=== PATIENT | male | born 1965 | race Caucasian/White ===

== ENCOUNTER 2021-06-12 10:58 | Emergency (ER) | payer MEDICAID, OTHER ==
[2021-06-12 11:17] VITALS: BP 166/86; PULSE 76
[2021-06-12] MEDS ORDERED: diphenhydrAMINE 50 MG/ML SDV IVPUSH ONE (11:30)
[2021-06-12] MEDS ORDERED: methylPREDNISolone Sodium Succinate 125 MG/2 ML SDV IVPUSH ONE (11:30)
[2021-06-12] MEDS ORDERED: Famotidine 20 MG/2 ML SDV IVPUSH ONE (11:30)
[2021-06-12] MEDS ORDERED: Sodium Chloride 0.9% 10 ML Syringe FLUSH PRN (11:30)
[2021-06-12] MEDS ORDERED: Sodium Chloride 0.9% 1,000 ML IV ONE (11:30)
--- NOTE | 2021-06-12 11:35 | EDM.PDOC ---
ED HPI GENERAL MEDICAL PROBLEM - General Chief Complaint: Allergic Reaction Stated Complaint: POSS ALLERGIC REACTION Time Seen by Provider: 06/12/21 11:15 Source of Information: Reports: Patient, RN Notes Reviewed History Limitations: Reports: No Limitations - History of Present Illness INITIAL COMMENTS - FREE TEXT/NARRATIVE: Patient is a 56-year-old male who presents to the ER for the evaluation of a possible allergic reaction. States that he was placed on primidone [address] Dion Gomez in [facility] for his essential tremors. States that he took his medication as prescribed last night; he woke up, feeling swollen, and had a funny sensation in his chest. He states the only thing he changed yesterday was the ingestion of that medication. He took all other medications as prescribed. Denying any fevers or chills, cough or shortness of breath or any sort of nausea/vomiting/diarrhea. Not necessarily having chest pain, but again states he had a "funny feeling in his chest". Vitals are stable at the time of triage, he is in no acute distress. Chest Pain Score (Numeric/FACES): 4 - Related Data Allergies Allergy/AdvReac Type Severity Reaction Status Date / Time morphine Allergy Severe Airway Verified 06/12/21 11:17 Tightness aspirin AdvReac Severe Numbness Verified 06/12/21 11:17 Home Meds: Home Meds oxyCODONE HCl/Acetaminophen [Percocet 5-325 mg Tablet] 1 - 2 each PO Q6HR PRN #20 tablet 04/03/16 [Rx] Pantoprazole 06/12/21 [History] Primidone [Mysoline] 50 mg PO 06/12/21 [History] atorvaSTATin [Lipitor] 06/12/21 [History] lisinopriL [Lisinopril] 06/12/21 [History] Past Medical History HEENT History: Reports: Impaired Vision Other HEENT History: wears reading glasses Cardiovascular History: Reports: High Cholesterol, Hypertension Respiratory History: Reports: Asthma Musculoskeletal History: Reports: Back Pain, Chronic Other Musculoskeletal History: back surgery 2 times Neurological History: Reports: Other (See Below) Other Neuro History: tremors Dermatologic History: Reports: Other (See Below) Other Dermatologic History: 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 ED EXAM GENERAL NO PERIP PULSE - Physical Exam Exam: See Below Exam Limited By: No Limitations General Appearance: Alert, WD/WN, No Apparent Distress Throat/Mouth: Normal Inspection, Normal Lips, Normal Teeth, Normal Gums, Normal Oropharynx, Normal Voice, No Airway Compromise Respiratory/Chest: No Respiratory Distress, Lungs Clear, Normal Breath Sounds, No Accessory Muscle Use, Chest Non-Tender Cardiovascular: Normal Peripheral Pulses, Regular Rate, Rhythm, No Edema Extremities: Normal Inspection, Normal Capillary Refill Neurological: Alert, Oriented, Normal Cognition, No Motor/Sensory Deficits Psychiatric: Normal Affect, Normal Mood Skin Exam: Warm, Dry, Intact, Normal Color, No Rash Course - Vital Signs Last Recorded V/S: Last Vital Signs Temp 96.8 F L 06/12/21 11:13 Pulse 76 06/12/21 11:13 Resp 18 06/12/21 11:13 BP 166/86 H 06/12/21 11:13 Pulse Ox 100 06/12/21 11:13 - Orders/Labs/Meds Orders: Active Orders 24 hr Category Date Time Status Peripheral IV Care [RC] . DIRECTED Care 06/12/21 11:30 Ordered Sodium Chloride 0.9% [Normal Saline] 1,000 ml Med 06/12/21 11:30 Ordered IV ONETIME Sodium Chloride 0.9% [Saline Flush] Med 06/12/21 11:30 Ordered 10 ml FLUSH ASDIRECTED PRN Peripheral IV Insertion Adult [OM.PC] Stat Oth 06/12/21 11:30 Ordered Medication Orders Sodium Chloride (Normal Saline) 1,000 mls @ 500 mls/hr IV ONETIME ONE Stop: 06/12/21 13:29 Last Admin: 06/12/21 12:02 Dose: 500 mls/hr Documented by: BRENDAN Sodium Chloride (Sodium Chloride 0.9% 10 Ml Syringe) 10 ml FLUSH ASDIRECTED PRN PRN Reason: Keep Vein Open Last Admin: 06/12/21 12:01 Dose: 10 ml Documented by: BRENDAN Labs: Laboratory Tests 06/12/21 06/12/21 Range/Units 11:43 11:43 WBC 6.42 (4.23-9.07) K/mm3 RBC 4.58 L (4.63-6.08) M/mm3 Hgb 14.2 D (13.7-17.5) gm/dl Hct 42.7 (40.1-51.0) % MCV 93.2 H (79.0-92.2) fl MCH 31.0 (25.7-32.2) pg MCHC 33.3 (32.2-35.5) g/dl RDW Std Deviation 44.9 H (35.1-43.9) fL Plt Count 286 (163-337) K/mm3 MPV 8.5 L (9.4-12.3) fl Neut % (Auto) 70.7 H (34.0-67.9) % Lymph % (Auto) 19.0 L (21.8-53.1) % [place] % (Auto) 7.5 (5.3-12.2) % Eos % (Auto) 2.5 (0.8-7.0) Baso % (Auto) 0.3 (0.1-1.2) % Neut # (Auto) 4.54 (1.78-5.38) K/mm3 Lymph # (Auto) 1.22 L (1.32-3.57) K/mm3 [place] # (Auto) 0.48 (0.30-0.82) K/mm3 Eos # (Auto) 0.16 (0.04-0.54) K/mm3 Baso # (Auto) 0.02 (0.01-0.08) K/mm3 Sodium 140 (136-145) mEq/L Potassium 4.5 (3.5-5.1) mEq/L Chloride 107 (98-107) mEq/L Carbon Dioxide 25 (21-32) mEq/L Anion Gap 12.5 (5-15) BUN 13 (7-18) mg/dL Creatinine 1.0 (0.7-1.3) mg/dL Est Cr Clr Drug Dosing 72.60 mL/min Estimated GFR (MDRD) > 60 (>60) mL/min BUN/Creatinine Ratio 13.0 L (14-18) Glucose 110 H (70-99) mg/dL Calcium 8.4 L (8.5-10.1) mg/dL Total Bilirubin 0.4 (0.2-1.0) mg/dL AST 17 (15-37) U/L ALT 31 (16-63) U/L Alkaline Phosphatase 56 (46-116) U/L Total Protein 7.0 (6.4-8.2) g/dl Albumin 3.8 (3.4-5.0) g/dl Globulin 3.2 gm/dL Albumin/Globulin Ratio 1.2 (1-2) Meds: Medications Generic Name Dose Route Start Last Admin Trade Name Freq PRN Reason Stop Dose Admin Sodium Chloride 1,000 mls @ 500 mls/hr 06/12/21 11:30 06/12/21 12:02 Normal Saline IV 06/12/21 13:29 500 mls/hr ONETIME ONE Administration Sodium Chloride 10 ml 06/12/21 11:30 06/12/21 12:01 Sodium Chloride 0.9% 10 Ml Syringe FLUSH 10 ml ASDIRECTED PRN Administration Keep Vein Open Discontinued Medications Generic Name Dose Route Start Last Admin Trade Name Freq PRN Reason Stop Dose Admin Diphenhydramine HCl 50 mg 06/12/21 11:30 06/12/21 12:00 Diphenhydramine 50 Mg/Ml Sdv IVPUSH 06/12/21 11:31 50 mg ONETIME ONE Administration Famotidine 20 mg 06/12/21 11:30 06/12/21 12:00 Famotidine 20 Mg/2 Ml Sdv IVPUSH 06/12/21 11:31 20 mg ONETIME ONE Administration Methylprednisolone Sodium Succinate 125 mg 06/12/21 11:30 06/12/21 12:01 Methylprednisolone Sodium Succinate 125 Mg/2 Ml Sdv IVPUSH 06/12/21 11:31 125 mg ONETIME ONE Administration - Re-Assessments/Exams Free Text/Narrative Re-Assessment/Exam: 06/12/21 11:34 Patient presents to the ER for evaluation of a possible allergic reaction. We will go ahead and give him some medication to see if this helps a little bit, get some basic labs for ongoing evaluation. 06/12/21 12:19 Labs all appear within normal limits. We will go ahead and see if we get a hold of this neurologist, Dr. Gomez at [facility] to see if he has any further suggestions. 06/12/21 13:26 I did reassess the patient at bedside, states he is feeling a little bit better. I was not able to hear back from the patient's neurologist, Dr. Gomez. We will go ahead and have the patient cease taking his medication and have him follow-up with his regular provider, Dr. Luna or the neurologist for ongoing management. Departure - Departure Time of Disposition: 13:27 Disposition: Home, Self-Care 01 Condition: Good Clinical Impression: Medication reaction Qualifiers: Encounter type: initial encounter Qualified Code(s): T50.905A - Adverse effect of unspecified drugs, medicaments and biological substances, initial encounter - Discharge Information *PRESCRIPTION DRUG MONITORING PROGRAM REVIEWED*: No *COPY OF PRESCRIPTION DRUG MONITORING REPORT IN PATIENT [place]: No Referrals: Guero Luna MD [Primary Care Provider] - Forms: ED Department Discharge Additional Instructions: Your evaluated in the ER today for your suspected allergic / medication reaction. You were given a few meds in the ER, that seemed to help a little bit. I would recommend that you discontinue use of the primidone medication as prescribed by your neurologist, Dr. Gomez, until you get a hold of him or his office to see how they would like to proceed for treatment of your essential tremors. Since you have only had just one dose of this medication, you should not be at major risk for any sort of withdrawal issues. Please call your neurologist, or Dr. Luna in the next few days to schedule an appointment or to see if they have any further suggestions regarding your clinical course of care. Do not hesitate to return to the ER at any time if symptoms change or worsen. Sepsis Event Note (ED) - Evaluation Sepsis Screening Result: No Definite Risk - Focused Exam Vital Signs: Vital Signs Temp Pulse Resp BP Pulse Ox 06/12/21 11:13 96.8 F L 76 18 166/86 H 100 - My Orders Last 24 Hours: My Active Orders 06/12/21 11:30 Peripheral IV Care [RC] . DIRECTED Sodium Chloride 0.9% [Normal Saline] 1,000 ml IV ONETIME Sodium Chloride 0.9% [Saline Flush] 10 ml FLUSH ASDIRECTED PRN Peripheral IV Insertion Adult [OM.PC] Stat - Assessment/Plan Last 24 Hours: My Active Orders 06/12/21 11:30 Peripheral IV Care [RC] . DIRECTED Sodium Chloride 0.9% [Normal Saline] 1,000 ml IV ONETIME Sodium Chloride 0.9% [Saline Flush] 10 ml FLUSH ASDIRECTED PRN Peripheral IV Insertion Adult [OM.PC] Stat
== END 2021-06-12 13:40 | disposition home or self-care (01) ==
LOC: JD.ED 10:58
DX: R22.2 Localized swelling, mass and lump, trunk (principal); T42.6X5A Adverse effect of other antiepileptic and sedative-hypnotic drugs, initial encounter; E78.00 Pure hypercholesterolemia, unspecified; I10 Essential (primary) hypertension; Z72.0 Tobacco use; Z88.5 Allergy status to narcotic agent; Z88.8 Allergy status to other drugs, medicaments and biological substances; Z79.899 Other long term (current) drug therapy
CPT/HCPCS: 36415; 80053; 85025; 96374; 96375; 99283-25; 99284; J1200; J2930; J3490; J7030

== ENCOUNTER 2021-09-25 12:18 | Emergency (ER) | payer MEDICAID ==
[2021-09-25] MEDS ORDERED: Lactated Ringers 500 ML IV ONE (12:52)
[2021-09-25] MEDS ORDERED: Sodium Chloride 0.9% 10 ML Syringe FLUSH PRN (12:56)
[2021-09-25] MEDS ORDERED: Iopamidol 612 MG/ML 100 ML Bottle IVPUSH ONE (12:56)
[2021-09-25] MEDS ORDERED: Lactated Ringers 1,000 ML IV SCH (13:00)
[2021-09-25 17:25] VITALS: BP 126/81; PULSE 83
== END 2021-09-25 15:10 | disposition home or self-care (01) ==
LOC: JD.ED 12:18
DX: U07.1 COVID-19 (principal); R10.31 Right lower quadrant pain; E78.00 Pure hypercholesterolemia, unspecified; I10 Essential (primary) hypertension; Z72.0 Tobacco use; Z88.5 Allergy status to narcotic agent; Z88.8 Allergy status to other drugs, medicaments and biological substances; Z79.899 Other long term (current) drug therapy
CPT/HCPCS: 36415; 74177; 74177-26; 80053; 81003; 85025; 99284-25; J7120; Q9967; U0002

== ENCOUNTER 2022-02-27 11:15 | Emergency (ER) | payer MEDICAID ==
[2022-02-27 11:51] VITALS: BP 164/80; PULSE 63
== END 2022-02-27 12:20 | disposition home or self-care (01) ==
LOC: JD.ED 11:15
DX: S30.861A Insect bite (nonvenomous) of abdominal wall, initial encounter (principal); E78.00 Pure hypercholesterolemia, unspecified; I10 Essential (primary) hypertension; F17.210 Nicotine dependence, cigarettes, uncomplicated; Z88.5 Allergy status to narcotic agent; Z88.8 Allergy status to other drugs, medicaments and biological substances; Z79.899 Other long term (current) drug therapy; W57.XXXA Bitten or stung by nonvenomous insect and other nonvenomous arthropods, initial encounter
CPT/HCPCS: 99282

== ENCOUNTER 2022-05-21 10:45 | Emergency (ER) | payer MEDICAID ==
[2022-05-21 11:23] VITALS: PULSE 78
[2022-05-21 12:15] VITALS: BP 152/78
== END 2022-05-21 12:12 | disposition home or self-care (01) ==
LOC: JD.ED 10:45
DX: K04.7 Periapical abscess without sinus (principal); K02.9 Dental caries, unspecified; E78.00 Pure hypercholesterolemia, unspecified; I10 Essential (primary) hypertension; F17.210 Nicotine dependence, cigarettes, uncomplicated; Z88.5 Allergy status to narcotic agent; Z88.8 Allergy status to other drugs, medicaments and biological substances; Z86.16 Personal history of COVID-19
CPT/HCPCS: 99282

== ENCOUNTER 2024-10-25 15:50 | Emergency (ER) | payer MEDICAID ==
[2024-10-25] MEDS: EPINEPHrine 1 MG/ML SDV IM ONE (16:01)
[2024-10-25] MEDS: EPINEPHrine 1 MG/ML SDV ONE (16:06)
[2024-10-25] MEDS: diphenhydrAMINE 50 MG/ML SDV IVPUSH ONE (16:06)
[2024-10-25] MEDS: methylPREDNISolone Sodium Succinate 125 MG/2 ML SDV IVPUSH ONE (16:08)
[2024-10-25] MEDS: Famotidine 20 MG/2 ML SDV IVPUSH ONE (16:11)
[2024-10-25] MEDS ORDERED: Sodium Chloride 0.9% 100 ML IV SCH (17:45)
[2024-10-25] MEDS: Sodium Chloride 0.9% 10 ML Syringe FLUSH PRN (18:12)
[2024-10-25] MEDS: Iopamidol 755 Mg/ML 100 ML Bottle IVPUSH ONE (18:12)
[2024-10-25] MEDS: Sodium Chloride 0.9% 1,000 ML IV ONE (18:33)
[2024-10-25 18:40] LABS: BASOPHILS PERCENT AUTO 0.2 % (0.0-1.0); EOSINOPHILS PERCENT AUTO 0.4 % (0.0-6.0); HEMATOCRIT 36.3 % (42.0-52.0); HEMOGLOBIN 12.5 gm/dl (14.0-18.0); IMMATURE GRAN ABSOLUTE AUTO 0.04 K/mm3 (0.00-0.05); IMMATURE GRAN PERCENT AUTO 0.4 % (0.0-0.4); LYMPHOCYTES ABSOLUTE AUTO 0.7 K/mm3 (1.0-4.8); LYMPHOCYTES PERCENT AUTO 7.4 % (24.0-44.0); MEAN CORPUSCULAR HEMOGLOBIN 29.7 pg (28.0-32.0); MEAN CORPUSCULAR HGB CONC 34.4 g/dl (32.0-36.0); MEAN CORPUSCULAR VOLUME 86.2 fl (83.0-99.0); MEAN PLATELET VOLUME 8.8 fl (9.4-12.4); MONOCYTES ABSOLUTE AUTO 0.3 K/mm3 (0.0-0.8); MONOCYTES PERCENT AUTO 3.1 % (0.0-8.0); NEUTROPHILS PERCENT AUTO 88.5 % (41.0-71.0); PLATELET COUNT,PLT 270 K/mm3 (150-400); RED BLOOD CELL COUNT 4.21 M/mm3 (4.52-5.90); WHITE BLOOD CELL COUNT,WBC 9.07 K/mm3 (3.9-11.3)
[2024-10-25 19:02] LABS: ALBUMIN 3.2 g/dl (3.4-5.0); ANION GAP 9.7 (5-15); BILIRUBIN TOTAL 0.6 mg/dL (0.2-1.0); EST CRCL DRUG DOSING (CG) 72.66 mL/min; POTASSIUM,K 3.7 mEq/L (3.5-5.1); PROTEIN TOTAL,TP 6.5 g/dl (6.4-8.2)
[2024-10-25 19:05] LABS: LACTIC ACID 0.9 mmol/L (0.4-2.0)
[2024-10-25 20:22] VITALS: BP 150/45
[2024-10-25] MEDS: Ampicillin/Sulbactam Na 3 GM in Sodium Chloride 0.9% 100 ML IV ONE (20:30)
[2024-10-25 21:46] VITALS: PULSE 97
== END 2024-10-25 21:44 ==
LOC: JD.ED 15:50
DX: R22.1 Localized swelling, mass and lump, neck (principal); M54.2 Cervicalgia; R93.89 Abnormal findings on diagnostic imaging of other specified body structures; I10 Essential (primary) hypertension; E78.00 Pure hypercholesterolemia, unspecified; J45.909 Unspecified asthma, uncomplicated; K21.9 Gastro-esophageal reflux disease without esophagitis; Z86.16 Personal history of COVID-19; Z79.899 Other long term (current) drug therapy; Z88.5 Allergy status to narcotic agent; Z88.8 Allergy status to other drugs, medicaments and biological substances; Z88.6 Allergy status to analgesic agent
CPT/HCPCS: 36415; 70491; 80053; 82947; 83605; 85025; 87040; 96361; 96365; 96372; 96375; 99285; J0171; J0295; J1200; J2919; J7030; Q9967